=== PATIENT | male | born 1955 | race Caucasian/White ===

== ENCOUNTER 2021-05-22 11:50 | Emergency (ER) | payer OTHER ==
[~2021-05-22] VITALS: Ht 170.2 cm; Wt 63.5 kg
[2021-05-22 12:07] VITALS: BP 137/83
--- NOTE | 2021-05-22 13:10 | NUR ---
CD REQUESTED FROM RADIOLOGY
== END 2021-05-22 13:13 | disposition home or self-care (01) ==
LOC: ER 11:56
DX: S52.591A Other fractures of lower end of right radius, initial encounter for closed fracture (principal); Z88.0 Allergy status to penicillin; W19.XXXA Unspecified fall, initial encounter; Y93.89 Activity, other specified; Y92.89 Other specified places as the place of occurrence of the external cause; Y99.8 Other external cause status
CPT/HCPCS: 73090-TC; 73110